=== PATIENT | female | born 1940 | race Caucasian/White ===

== ENCOUNTER 2016-08-23 14:48 | Observation (INO) | payer MEDICARE, BC ==
[~2016-08-23] VITALS: Ht 154.9 cm; Wt 57.2 kg
[~2016-08-23 14:48] MED LIST: ATOR10 PO; ESTR0.5T PO; FEXO180T PO; SANC20TA PO
[2016-08-23] MEDS ORDERED: SODIUM CHLORIDE 0.9% FLUSH 5 ML FLUSH IVF PRN (15:45)
--- NOTE | 2016-08-23 15:46 | PD ---
HPI Chief Complaint: Neuro Symptoms/ Deficits Time Seen by Provider: 15:12 Travel History International Travel<30 days: No Contact w/Intl Traveler<30days: No Traveled to known affect area: No History of Present Illness HPI The patient is a 76-year-old female who presents emergency department for diplopia. The patient states she's had several episodes of diplopia over the last 4 days. The patient saw an excellence consultant earlier today who performed an eye exam, stated there is no obvious abnormalities on eye exam, sent the patient to the emergency department for possible TIA. The patient states the diplopia is present out of both eyes, with or without glasses, but is unsure if she has diplopia when just 1 eye is opened. The patient denies any weakness or numbness of the upper or lower extremities and denies any paresthesias, numbness , or tingling of the upper or lower extremities. The patient does have a history of hyperlipidemia, however, is unable to be treated with statin secondary to medication side effects. The patient denies any known history of hypertension, diabetes, tobacco use, CVA, TIA, PVD, or previous CAD. The patient's primary physician is Dr. Joel Pedro. The patient was sent by the ER physician to rule out TIA/CVA. Upon arrival patient is asymptomatic. PFSH Past Medical History Arthritis: Yes Heart Rhythm Problems: No Cardiac Catheterization: No Cardiovascular Problems: No High Cholesterol: Yes Congestive Heart Failure: No Diabetes: No Diminished Hearing: No GERD: Yes Genitourinary: Yes (spastic bladder) Hypertension: No Immunizations Current: Yes Myocardial Infarction: No Tetanus Vaccination: < 5 Years Influenza Vaccination: Yes ?: Not Past Surgical History Coronary Artery Bypass Graft: No Genitourinary Surgery: Yes (bladder suspension) Hysterectomy: Yes Social History Alcohol Use: Yes (OCC, states she hasn't in a while ) Tobacco Use: No Substance Use: No Allergies-Medications (Allergen,Severity, Reaction): Coded Allergies: Penicillin (Verified Allergy, Severe, HIVES, 08/23/16) Shellfish (Verified Allergy, Intermediate, swelling, 08/23/16) Sulfa (Verified Allergy, Intermediate, unknown, 08/23/16) Uncoded Allergies: STATINS (Allergy, Intermediate, BACK PAIN, 03/28/12) Reported Meds & Prescriptions Reported Meds & Active Scripts Active Reported Fish Oil 1000 mg ([place]-3 Fatty Acids) 1 Cap Cap Omeprazole 20 Mg Tab 20 Mg PO DAILY Payton Allergy (Fexofenadine HCl) 180 Mg Tab 180 Mg PO DAILY [Sanctura] 60 Mg PO DAILY Fexofenadine Hcl (Fexofenadine HCl) 180 Mg Tab 180 Mg PO DAILY Lipitor (Atorvastatin Calcium) 10 Mg Tab 10 Mg PO DAILY [id number] Mg 20 Mg Tab 60 Mg PO DAILY Estradiol 0.5 Mg Tab 0.5 Mg PO DAILY Review of Systems Except as stated in HPI: all other systems reviewed are Neg Eyes: Positive: Diploplia, Visual changes, No: Blurred Vision, Photophobia, Foreign Body Sensation, Pain, Blind Spots, Blindness HENT: No: Headaches, Lightheadedness Cardiovascular: No: Chest Pain or Discomfort Respiratory: No: Shortness of Breath Gastrointestinal: No: Nausea, Vomiting, Abdominal Pain Musculoskeletal: No: Weakness Neurologic: No: Dizziness, Focal Abnormalities, Headache, Paresthesia, Sensory Disturbance Physical Exam Narrative GENERAL: Awake, alert, pleasant 76-year-old female who appears her stated age and is in no acute respiratory distress. SKIN: Warm and dry. HEAD: Atraumatic. Normocephalic. EYES: Pupils equal and round. Pupils are 3 mm bilateral and reactive. EOMs are intact. Vision is intact at a distance of 2 feet to fingers. ENT: No nasal bleeding or discharge. Mucous membranes pink and moist. NECK: Trachea midline. No JVD. CARDIOVASCULAR: Regular rate and rhythm. No murmur appreciated. RESPIRATORY: No accessory muscle use. Clear to auscultation. Breath sounds equal bilaterally. GASTROINTESTINAL: Abdomen soft, non-tender, nondistended. MUSCULOSKELETAL: No obvious deformities. No clubbing. No cyanosis. No edema. NEUROLOGICAL: Awake and alert. No obvious cranial nerve deficits. Motor grossly within normal limits. Normal speech. Nonfocal. Oriented 4. Follows commands without difficulty. No drift of the upper or lower extremities. Smile is symmetric. Finger to nose is normal. [id number]-bt-[id number] is normal. PSYCHIATRIC: Appropriate mood and affect; insight and judgment normal. Data Data Last Documented VS Vital Signs Date Time Temp Pulse Resp B/P Pulse Ox O2 Delivery O2 Flow Rate FiO2 08/23/16 17:30 78 18 132/82 98 Room Air Orders Electrocardiogram (08/23/16 15:33) Prothrombin Time / Inr (Pt) (08/23/16 15:33) Act Partial Throm Time (Ptt) (08/23/16 15:33) Complete Blood Count With Diff (08/23/16 15:33) Comprehensive Metabolic Panel (08/23/16 15:33) Creatine Kinase (Cpk) (08/23/16 15:33) Troponin I (08/23/16 15:33) Ct Brain W/O Iv Contrast(Rout) (08/23/16 15:33) Ecg Monitoring (08/23/16 15:33) Iv Access Insert/Monitor (08/23/16 15:33) Oximetry (08/23/16 15:33) Sodium Chloride 0.9% Flush (Ns Flush) (08/23/16 15:45) Place In Observation (08/23/16 ) Vital Signs (Adult) Q4H (08/23/16 17:35) Neuro Checks Q4H (08/23/16 17:35) Activity Oob Ad Stacie (08/23/16 17:35) Diet Heart Healthy (08/23/16 Dinner) Sodium Chloride 0.9% Flush (Ns Flush) (08/23/16 17:45) Sodium Chloride 0.9% Flush (Ns Flush) (08/23/16 21:00) Acetaminophen (Tylenol) (08/23/16 17:45) Ondansetron Inj (Zofran Inj) (08/23/16 17:45) Comprehensive Metabolic Panel (08/24/16 06:00) Complete Blood Count With Diff (08/24/16 06:00) Scd Bilateral/Knee High GARETH.BID (08/23/16 17:35) Naloxone Inj (Narcan Inj) (08/23/16 17:45) Admit Order (Ed Use Only) (08/23/16 17:36) Aspirin (Aspirin) (08/23/16 17:45) Consult Neurology (08/23/16 ) Labs Laboratory Tests Test 08/23/16 15:00 White Blood Count 5.6 TH/MM3 Red Blood Count 4.45 MIL/MM3 Hemoglobin 13.7 GM/DL Hematocrit 40.0 % Mean Corpuscular Volume 89.8 FL Mean Corpuscular Hemoglobin 30.7 PG Mean Corpuscular Hemoglobin 34.2 % Concent Red Cell Distribution Width 12.6 % Platelet Count 188 TH/MM3 Mean Platelet Volume 9.4 FL Neutrophils (%) (Auto) 53.6 % Lymphocytes (%) (Auto) 33.3 % Monocytes (%) (Auto) 9.5 % Eosinophils (%) (Auto) 1.5 % Basophils (%) (Auto) 2.1 % Neutrophils # (Auto) 3.0 TH/MM3 Lymphocytes # (Auto) 1.9 TH/MM3 Monocytes # (Auto) 0.5 TH/MM3 Eosinophils # (Auto) 0.1 TH/MM3 Basophils # (Auto) 0.1 TH/MM3 CBC Comment DIFF FINAL Differential Comment Prothrombin Time 10.1 SEC Prothromb Time International 0.9 RATIO Ratio Activated Partial 23.2 SEC Thromboplast Time Sodium Level 140 MEQ/L Potassium Level 3.7 MEQ/L Chloride Level 105 MEQ/L Carbon Dioxide Level 26.5 MEQ/L Anion Gap 9 MEQ/L Blood Urea Nitrogen 23 MG/DL Creatinine 0.79 MG/DL Estimat Glomerular Filtration 71 ML/MIN Rate Random Glucose 100 MG/DL Calcium Level 8.6 MG/DL Total Bilirubin 0.3 MG/DL Aspartate Amino Transf 20 U/L (AST/SGOT) Alanine Aminotransferase 20 U/L (ALT/SGPT) Alkaline Phosphatase 82 U/L Total Creatine Kinase 78 U/L Troponin I LESS THAN 0.02 NG/ML Total Protein 7.0 GM/DL Albumin 3.3 GM/DL [facility] Medical Decision Making Medical Screen Exam Complete: Yes Emergency Medical Condition: Yes Medical Record Reviewed: Yes Interpretation(s) EKG reveals normal sinus rhythm with a rate of 78. No ischemic changes or ectopy noted. Differential Diagnosis Differential diagnosis includes TIA, CVA, diplopia, visual acuity changes, embolic phenomenon, cerebellar infarct, pituitary adenoma. Narrative Course IV was established, labs were drawn and sent, and the patient was placed on cardiac telemetry monitoring and continuous pulse oximetry monitoring. EKG was ordered and interpreted. CT of the brain was ordered. CT the brain was negative. The patient was administered aspirin orally. Laboratory evaluation is unremarkable. The patient has a component of binocular and monocular diplopia, was sent to the emergency department to rule out TIA/CVA by excellence consultant. Therefore, patient will be admitted for 23 hour observation for further evaluation including MRI, ultrasound of carotids, and echocardiogram. I discussed the patient with the on-call physician for Dr. Joel Pedro, Dr. Billy, who agrees with 23 hour observation. Physician Communication Physician Communication I discussed the patient Dr. Billy who agrees with 23 hour observation. Diagnosis Primary Impression: Diplopia Admitting Information Admitting Physician Requests: Observation Condition: Stable Anand Christian MD Aug 23, 2016 15:46
[2016-08-23 16:00] VITALS: O2SAT 98
[2016-08-23 16:22] LABS: BASOPHIL # 0.1 TH/MM3 (0-0.2); BASOPHIL % 2.1 % (0.0-2.0); EOSINOPHIL # 0.1 TH/MM3 (0-0.4); EOSINOPHIL % 1.5 % (0.0-4.0); HEMO FLAGS DIFF FINAL; LYMPH % 33.3 % (9.0-44.0); LYMPHOCYTE # 1.9 TH/MM3 (1.0-4.8); MEAN CELL VOLUME 89.8 FL (80.0-100.0); MEAN CORPUSCULAR HEMOGLOBIN 30.7 PG (27.0-34.0); MEAN CORPUSCULAR HGB CONC 34.2 % (32.0-36.0); MONO % 9.5 % (0.0-8.0); NEUT % 53.6 % (16.0-70.0); PLATELET COUNT 188 TH/MM3 (150-450); RED BLOOD COUNT 4.45 MIL/MM3 (4.00-5.30); RED CELL DISTRIBUTION WIDTH 12.6 % (11.6-17.2); WHITE BLOOD COUNT 5.6 TH/MM3 (4.0-11.0)
[2016-08-23 16:41] LABS: CHLORIDE 105 MEQ/L (98-107); POTASSIUM 3.7 MEQ/L (3.5-5.1); SODIUM (NA) 140 MEQ/L (136-145)
[2016-08-23 16:48] LABS: ANION GAP 9 MEQ/L (5-15); BICARBONATE 26.5 MEQ/L (21.0-32.0); BLOOD UREA NITROGEN 23 MG/DL (7-18)
[2016-08-23 16:51] LABS: ALT (GPT) 20 U/L (10-53); AST (GOT) 20 U/L (15-37); GLOMERULAR FILTRATION RATE 71 ML/MIN (>89)
--- NOTE | 2016-08-23 16:51 | RADHPO ---
EXAM DATE/TIME: 08/23/2016 16:09 [facility] COMPARISON: No previous studies available for comparison. INDICATIONS : Double vision with headache for four days. RADIATION DOSE: 61.28 CTDIvol (mGy) MEDICAL HISTORY : None SURGICAL HISTORY : None. ENCOUNTER: Initial ACUITY: 4 - 6 days PAIN SCALE: 4/10 LOCATION: cranial TECHNIQUE: Multiple contiguous axial images were obtained of the head. Using automated exposure control and adj ustment of the mA and/or kV according to patient size, radiation dose was kept as low as reasonably a chievable to obtain optimal diagnostic quality images. FINDINGS: CEREBRUM: The ventricles are normal for age. No evidence of midline shift, mass lesion, hemorrhage or acute in farction. No extra-axial fluid collections are seen. POSTERIOR FOSSA: The cerebellum and brainstem are intact. The 4th ventricle is midline. The cerebellopontine angle i s unremarkable. EXTRACRANIAL: The visualized portion of the orbits is intact. SKULL: The calvaria is intact. No evidence of skull fracture. CONCLUSION: Normal examination. Grabiel Johnson MD on August 23, 2016 at 16:48 Board Certified Radiologist. This report was verified electronically.
[2016-08-23 16:53] LABS: TOTAL BILIRUBIN ADULT 0.3 MG/DL (0.2-1.0)
[2016-08-23 16:54] LABS: ALKALINE PHOSPHATASE 82 U/L (45-117)
[2016-08-23 16:58] LABS: CREATINE KINASE 78 U/L (26-192)
[2016-08-23 17:22] LABS: APTT (PATIENT) 23.2 SEC (24.3-30.1); INTERNATIONAL NORMALIZED RATIO 0.9 RATIO; PROTHROMBIN TIME - PATIENT 10.1 SEC (9.8-11.6)
[2016-08-23 17:30] VITALS: BP 132/82; PULSE 78; RESP 18; O2SAT 98
[2016-08-23] MEDS ORDERED: NALOXONE HCL 0.4 MG/ML AMP IV PRN (17:45)
[2016-08-23] MEDS ORDERED: SODIUM CHLORIDE 0.9% FLUSH 5 ML FLUSH FLUSH PRN (17:45)
[2016-08-23] MEDS ORDERED: ACETAMINOPHEN 325 MG TAB PO PRN (17:45)
[2016-08-23] MEDS ORDERED: ONDANSETRON HCL 4 MG/2 ML VIAL IVP PRN (17:45)
[2016-08-23] MEDS ORDERED: ASPIRIN 325 MG TAB PO ONE (17:45)
[2016-08-23] MEDS: ATORVASTATIN 10 MG TAB PO SCH (18:00)
[2016-08-23] MEDS: LORATADINE 10 MG TAB PO SCH (18:31)
[2016-08-23] MEDS: TOLTERODINE TARTRATE 4 MG CAP LA PO SCH (18:31)
[2016-08-23] MEDS ORDERED: OMEP20TA PO (18:38)
[2016-08-23] MEDS ORDERED: SANCTURA PO (18:38)
[2016-08-23] MEDS ORDERED: FEXO15TA PO (18:38)
[2016-08-23] MEDS ORDERED: OMEG100037 (18:38)
[2016-08-23 19:00] VITALS: BP 160/75; PULSE 82; RESP 16; TEMP 97.2; O2SAT 97
--- NOTE | 2016-08-23 19:51 | RADHPO ---
EXAM DATE/TIME: 08/23/2016 19:29 [facility] COMPARISON: CT BRAIN W/O CONTRAST, August 23, 2016, 16:09. INDICATIONS : CVA. Intermittent diplopia. MEDICAL HISTORY : Hypercholesterolemia. SURGICAL HISTORY : Cholecystectomy. Hysterectomy. ENCOUNTER: Initial ACUITY: 2 day PAIN SCORE: 2/10 LOCATION: head TECHNIQUE: Multiplanar, multisequence MRI of the brain was performed without contrast. FINDINGS: There is no evidence for intracranial hemorrhage, mass effect, mass lesions, edema, or extra-axial fl uid collections. There are no signs of acute infarction for technique. The diffusion portion is unre markable. Slight degree of brain atrophy is seen. Slight periventricular white matter changes are see n nonspecific mostly consistent with chronic small vessel ischemic changes. CONCLUSION: Chronic atrophic and small vessel ischemic changes without any evidence for acute hem orrhage or mass effect. David Reyes MD on August 23, 2016 at 19:48 Board Certified Radiologist. This report was verified electronically.
[2016-08-23 20:24] VITALS: BP 141/70; PULSE 86; RESP 14; TEMP 96.4; O2SAT 95
[2016-08-23] MEDS: SODIUM CHLORIDE 0.9% FLUSH 5 ML FLUSH FLUSH SCH (20:52)
[2016-08-24 01:42] VITALS: BP 105/56; PULSE 85; RESP 12; TEMP 98.1; O2SAT 95
[2016-08-24 04:00] VITALS: BP 120/72; PULSE 84; RESP 14; TEMP 98.6; O2SAT 96
[2016-08-24 08:00] VITALS: BP 102/70; PULSE 92; RESP 20; TEMP 96.5; O2SAT 95
[2016-08-24 08:05] VITALS: PULSE 116
[2016-08-24 08:32] LABS: AUTOMATED NEUTROPHIL # 2.8 TH/MM3 (1.8-7.7); BASOPHIL # 0.1 TH/MM3 (0-0.2); BASOPHIL % 1.3 % (0.0-2.0); EOSINOPHIL # 0.1 TH/MM3 (0-0.4); EOSINOPHIL % 2.7 % (0.0-4.0); HEMATOCRIT 40.1 % (35.0-46.0); HEMO FLAGS DIFF FINAL; LYMPH % 33.5 % (9.0-44.0); LYMPHOCYTE # 1.8 TH/MM3 (1.0-4.8); MEAN CELL VOLUME 90.1 FL (80.0-100.0); MEAN CORPUSCULAR HEMOGLOBIN 30.9 PG (27.0-34.0); MEAN CORPUSCULAR HGB CONC 34.3 % (32.0-36.0); MONO % 10.1 % (0.0-8.0); NEUT % 52.4 % (16.0-70.0); PLATELET COUNT 199 TH/MM3 (150-450); RED BLOOD COUNT 4.45 MIL/MM3 (4.00-5.30); RED CELL DISTRIBUTION WIDTH 13.2 % (11.6-17.2); WHITE BLOOD COUNT 5.3 TH/MM3 (4.0-11.0)
[2016-08-24 08:36] LABS: CHLORIDE 106 MEQ/L (98-107); POTASSIUM 4.3 MEQ/L (3.5-5.1); SODIUM (NA) 141 MEQ/L (136-145)
[2016-08-24 08:40] LABS: ANION GAP 5 MEQ/L (5-15); BLOOD UREA NITROGEN 21 MG/DL (7-18)
[2016-08-24] MEDS: TOLTERODINE TARTRATE 4 MG CAP LA PO SCH (08:42)
[2016-08-24 08:43] LABS: ALT (GPT) 17 U/L (10-53); AST (GOT) 15 U/L (15-37); GLOMERULAR FILTRATION RATE 74 ML/MIN (>89)
[2016-08-24] MEDS: LORATADINE 10 MG TAB PO SCH (08:43)
[2016-08-24] MEDS: SODIUM CHLORIDE 0.9% FLUSH 5 ML FLUSH FLUSH SCH (08:43)
[2016-08-24] MEDS: ATORVASTATIN 10 MG TAB PO SCH ×2 (08:43→08:49)
[2016-08-24 08:44] LABS: TOTAL BILIRUBIN ADULT 0.4 MG/DL (0.2-1.0)
[2016-08-24 08:46] LABS: ALKALINE PHOSPHATASE 81 U/L (45-117)
[2016-08-24] MEDS ORDERED: ASPI325T PO (10:26)
[2016-08-24] MEDS ORDERED: PANTOPRAZOLE SOD 40 MG DELAYED RELEASE TAB PO SCH (10:30)
[2016-08-24] MEDS ORDERED: ASPIRIN 325 MG TAB PO SCH (10:30)
[2016-08-24 12:00] VITALS: BP 125/71; PULSE 83; RESP 16; TEMP 96.7; O2SAT 97
--- NOTE | 2016-08-24 12:16 | EKG ---
Date Performed: 08/23/2016 Time Performed: 15:50:12 PTAGE: 76 years EKG: Sinus rhythm Normal ECG PREVIOUS TRACING : 04/07/2009 11.51 Compared to prior tracing no significant change DOCTOR: Bertin Carver Interpretating Date/Time 08/24/2016 12:14:41
--- NOTE | 2016-08-24 12:29 | MH ---
cc: DARNELL FLOR MD DATE OF ADMISSION 08/23/2016 CHIEF COMPLAINT Double vision. HISTORY OF PRESENT ILLNESS This is 76-year-old female with past medical-surgical history significant for arthritis, hyperlipidemia, spastic urinary bladder, history of bladder suspension surgery, hysterectomy who came to the ER at [facility] complaining of diplopia. The patient stated that she had several episodes of diplopia over the last 4 days and she saw an ruling technician earlier yesterday and was performed an eye examination, stated there is no obvious abnormality on the eye examination, sent the patient to the emergency room at [facility] for TIA. The patient states that the diplopia is present out of both eyes with or without glasses but is unsure if she has diplopia when just one eye is open. The patient denies any weakness or numbness, any speech problems, any hearing problem, any swallowing problems, any ___, numbness, tingling, any weakness in the upper or lower extremity or any confusion. He has hyperlipidemia but unable to treat it because of medication side effects. The patient denies any history of hypertension, diabetes, stroke in the past ____, history of peripheral vascular disease, coronary artery disease, has CVA in the past. When I examined the patient the patient is completely asymptomatic, has no diplopia, has totally resolved, other than that nothing significant. Past medical-surgical history as dictated above. SOCIAL HISTORY She denies smoking. She drinks occasionally. Denies any drug abuse. Lives at home. She is a retired sales process manager. ALLERGIES ALLERGY TO PENICILLIN, SHELLFISH, SULFA AND STATIN. MEDICATIONS 1. Fish oil. 2. Omeprazole 20 milligrams p.o. daily. 3. Payton 180 milligrams p.o. daily. 4. Fexofenadine 180 milligrams p.o. daily. 5. ___ 60 milligrams p.o. daily. 6. Estradiol 0.5 milligrams p.o. daily. The patient advised to stop Estradiol. REVIEW OF SYSTEMS All the review of systems are negative. PHYSICAL EXAMINATION GENERAL: This is a 76-year-old female sitting on the bed, not in any acute distress. VITAL SIGNS: Temperature 98.6, heart rate 84, respirations 14, blood pressure 120/72, O2 saturation 96% on room air. HEENT: Normocephalic, atraumatic. EOMI, PERRL, oral mucosa moist. NECK: Supple. No visible thyromegaly or neck mass. Trachea central. CVS: Regular rate and rhythm. LUNGS: Respiration is clear to auscultation bilaterally. ABDOMEN: Soft, nontender. Bowel sounds audible. EXTREMITIES: No cyanosis or clubbing. Full range of motion of all extremities. NEURO: Awake, alert, oriented x4. No focal deficits. SKIN: Warm and dry. PSYCH: The patient is cooperative. Mood and affect are normal. LABORATORY DATA Include CBC is totally unremarkable except for mono 10.1 high. BUN 21 high, GFR 74. LFTs are normal. Troponin I less than 0.02, albumin 3.2 low, total protein normal. PT 10.1, INR 0.9, APTT 23.2. IMAGING STUDIES CT brain done shows nothing acute. MRI of the brain done shows chronic atrophic and small-vessel ischemic changes without any evidence for acute hemorrhage or mass effect. ASSESSMENT/PLAN 1. This is a 76-year-old female who came to the ER diagnosed with diplopia off and on which is totally resolved, most likely TIA. The patient is on aspirin 325 milligrams p.o. daily. The patient had a statin taken in the past but has adverse reactions so unable to tolerate atorvastatin and unable to tolerate Crestor. Neurology consulted. CT brain does not show anything acute. MRI brain does not show anything acute. Further recommendation per neurology. Okay to discharge if okay with neurology. 2. History of hyperlipidemia. 3. History of arthritis. 4. History of spastic bladder. 5. History of gastroesophageal reflux disease. Protonix 40 milligrams p.o. daily. 6. DVT prophylaxis, SCD. 7. GI prophylaxis, Protonix 40 milligrams p.o. daily. We are going to manage the patient on a daily basis and make recommendations on a daily basis. Darnell Flor MD EA/BRIAN /10:22 AM /11:52 AM
--- NOTE | 2016-08-24 13:08 | MB ---
cc: THU HASSAN M.D. DATE OF CONSULTATION: 08/24/2016 HISTORY OF PRESENT ILLNESS She is a 76-year-old woman seen in consultation because of double vision. In the past few days she has had some very brief episodic double vision. She is unsure but it seems to be worse perhaps when she looks to the right and down. There are images perhaps [id number] with one imaging fading. No symptoms of paresthesias, no difficulty with speech, no problems with gait or balance. She has no history of stroke, seizures or TIAs. MEDICATIONS She does not take aspirin. She takes Tylenol p.r.n. She takes supplements, Lipitor, Estradiol, Sanctura. NEUROLOGIC EXAMINATION The patient is alert, very pleasant, oriented. Normal mentation. The ocular movements and visual [place] full. Pupils equal, reactive. There is a slight flattening on the right nasolabial fold, equivocal significance. There is no arm drift. Xdiatn-qj-jpot testing is normal. Reflexes were 1+, plantar responses flexor. ANCILLARY DATA MRI brain is showing some small vessel microvascular disease. CT brain normal. Chemistries essentially normal. ASSESSMENT Episodic, brief double vision. The cause is uncertain. I discussed with the patient that I would like her to start a baby aspirin daily. She can be discharged to be followed as outpatient. I will request thyroid enzymes, myasthenia antibodies, sed rate. She is instructed to see him in a couple of weeks. We will consider MRA studies as well. Thank you for asking us to assist in her care. MD DENNISE Prado/LATESHA /10:39 AM /12:55 PM
--- NOTE | 2016-08-24 13:43 | RADHPO ---
EXAM DATE/TIME: 08/24/2016 13:00 [facility] COMPARISON: No previous studies available for comparison. INDICATIONS : Cerebrovascular accident. MEDICAL HISTORY : Diplopia. GERD. Hyperlipidemia. SURGICAL HISTORY : Hysterectomy. Bladder suspension. ENCOUNTER: Initial ACUITY: 4-6 days PAIN SCORE: 2/10 LOCATION: Bilateral neck PEAK SYSTOLIC VELOCITIES (cm/sec): ICA/CCA RATIO: Right: 0.9 Left: 1.1 ICA: Right: 110 Left: 134 CCA: Right: 119 Left: 124 ECA: Right: 116 Left: 101 VERTEBRAL: Right: 79 antegrade Left: 67 antegrade Elevated flow velocities and ICA/CCA ratios have been found to correlate with increased degrees of vessel stenosis, calculated as percentage of diameter relative to a normal segment of distal ICA/CCA FINDINGS: RIGHT CAROTID: Mild noncalcified plaquing at the bifurcation. No significant stenosis is visualized. The waveforms are within normal limits. LEFT CAROTID: Mild noncalcified plaquing at the bifurcation. No significant stenosis is visualized. The waveforms are within normal limits. VERTEBRAL ARTERIES: Antegrade flow is seen in both vertebral arteries. MISCELLANEOUS: None. CONCLUSION: Mild atherosclerotic plaquing is noted at both carotid bifurcations. No focal high grade or hemodynam ically significant stenosis is demonstrated. Boy Hauser MD on August 24, 2016 at 13:40 Board Certified Radiologist. This report was verified electronically.
[2016-08-24 14:56] LABS: FREE T4 0.97 NG/DL (0.76-1.46)
[2016-08-28 13:56] LABS: STRIATED MUCLE AB TITER ND (<1:40)
[2016-08-30 19:54] LABS: ACETYLCHOLINE REC BINDING LESS THAN 0.30 nmol/L (())
== END 2016-08-24 14:33 | disposition home or self-care (01) ==
LOC: PHED 14:48 → PHEDA 17:37 → PH3A 18:43
PROVIDERS: ADMIT Family Medicine; ATTEND Family Medicine
DX: H53.2 Diplopia (principal); E78.5 Hyperlipidemia, unspecified; K21.9 Gastro-esophageal reflux disease without esophagitis; E78.00 Pure hypercholesterolemia, unspecified; M19.90 Unspecified osteoarthritis, unspecified site; Z79.82 Long term (current) use of aspirin; Z79.899 Other long term (current) drug therapy
CPT/HCPCS: 70450; 70551; 80053; 82550; 82607; 83519; 84439; 84443; 84484; 85025; 85610; 85652; 85730; 86255; 93005; 93880; 99285; G0378

== ENCOUNTER 2017-03-22 14:23 | Emergency (ER) | payer MEDICARE, BC ==
[~2017-03-22] VITALS: Ht 154.9 cm; Wt 56.0 kg
[~2017-03-22 14:23] MED LIST changes: +ASPI325T PO; -ATOR10 PO; -ESTR0.5T PO; +FEXO15TA PO; +OMEG100037; +OMEP20TA PO
[2017-03-22 14:25] VITALS: BP 198/85; PULSE 88; RESP 16; TEMP 97.7; O2SAT 96
[2017-03-22] MEDS ORDERED: ESTR1TAB PO (14:42)
[2017-03-22] MEDS ORDERED: ROSU20 PO (14:42)
[2017-03-22] MEDS ORDERED: ASPI81CH7 CHEW (14:42)
--- NOTE | 2017-03-22 15:12 | PD ---
HPI Chief Complaint: Musculoskeletal Complaint Time Seen by Provider: 14:49 Travel History International Travel<30 days: No Contact w/Intl Traveler<30days: No Traveled to known affect area: No History of Present Illness HPI 76-year-old female presents to the emergency room for evaluation of right thigh pain after a fall earlier today. Patient slipped on bug spray on her garage floor in her right leg without murmur. She had immediate sharp, severe pain in her right posterior thigh. At rest, there is no significant pain. States she has not been able to walk on it since then because of pain. Patient has not taken anything. Denies paresthesias. Denies hitting her head or any other injuries. PFSH Past Medical History Arthritis: Yes Blood Disorders: No Heart Rhythm Problems: No Cancer: No Cardiac Catheterization: No Cardiovascular Problems: No High Cholesterol: Yes Congestive Heart Failure: No Diabetes: No Diminished Hearing: No Endocrine: No GERD: Yes Genitourinary: Yes (spastic bladder) Hypertension: No Immune Disorder: No Musculoskeletal: No Neurologic: No Psychiatric: No Reproductive: No Respiratory: No Immunizations Current: Yes Myocardial Infarction: No Thyroid Disease: No ?: Not Past Surgical History Body Medical Devices: bilat cataracts Cholecystectomy: Yes Coronary Artery Bypass Graft: No Eye Surgery: Yes (CATARACTS) Genitourinary Surgery: Yes (bladder suspension) Hysterectomy: Yes Social History Alcohol Use: Yes (RARE) Tobacco Use: No Substance Use: No Allergies-Medications (Allergen,Severity, Reaction): Coded Allergies: penicillin G (Unverified Allergy, Severe, HIVES, 03/22/17) Sulfa (Sulfonamide Antibiotics) (Unverified Allergy, Intermediate, unknown , 03/22/17) shellfish derived (Unverified Allergy, Intermediate, swelling, 03/22/17) Uncoded Allergies: STATINS (Allergy, Intermediate, BACK PAIN, 03/28/12) Reported Meds & Prescriptions Reported Meds & Active Scripts Active Reported Crestor (Rosuvastatin Calcium) 20 Mg Tab 20 Mg PO WEEKLY Estradiol 1 Mg Tab 1 Mg PO DAILY Aspirin Children's (Aspirin) 81 Mg Chew 81 Mg CHEW DAILY Omeprazole 20 Mg Tab 20 Mg PO DAILY Review of Systems Except as stated in HPI: all other systems reviewed are Neg Physical Exam Narrative GENERAL: Well-nourished, well-developed female in no acute distress. Afebrile. SKIN: Focused skin assessment warm/dry. No erythema or ecchymosis. HEAD: Normocephalic. EYES: No scleral icterus. No injection or drainage. NECK: Supple, trachea midline. No JVD or lymphadenopathy. CARDIOVASCULAR: Regular rate and rhythm without murmurs, gallops, or rubs. RESPIRATORY: Breath sounds equal bilaterally. No accessory muscle use. MUSCULOSKELETAL: No cyanosis. No obvious edema. Compartments soft. Full range motion of the right lower extremity including hip, knee, ankle, and foot. Right hip is neither rotated nor shortened. No bony tenderness to palpation. 2+ dorsalis pedis pulse. There is mild tenderness to palpation of the hamstring muscles. Pain is exacerbated with any range of motion of the right leg. No pain at rest. Data Data Last Documented VS Vital Signs Date Time Temp Pulse Resp B/P (MAP) Pulse Ox O2 Delivery O2 Flow Rate FiO2 03/22/17 14:25 97.7 88 16 198/85 (122) 96 Orders Orders Bairon Bandage (03/22/17 15:02) Ketorolac Inj (Toradol Inj) (03/22/17 15:15) Orphenadrine Inj (Norflex Inj) (03/22/17 15:15) MDM Medical Decision Making Medical Screen Exam Complete: Yes Emergency Medical Condition: Yes Medical Record Reviewed: Yes Differential Diagnosis Sprain, strain, fracture, dislocation Narrative Course 76-year-old female presents to the emergency room for evaluation of right posterior thigh pain after slipping just prior to arrival. Patient states her leg slipped out from under her and she did the splitz. No other injuries. She had immediate pain and has not been able to bear weight because of pain. Pain is localized to the mid hamstring muscles. No joint or bone pain. Denies paresthesias. Physical exam is reassuring. There is no obvious tendon rupture. No erythema, ecchymosis, or edema. The muscle is mildly tender to palpation. No bony tenderness to palpation of the femur. Right lower extremity is neurovascularly intact with 2+ dorsalis pedis pulse. She has full range of motion. Patient has pain with range of motion of the leg. No pain at rest. Patient was informed that x-rays will not show muscle, ligament, or tendon injuries. She was given the expected course of the muscle strain/tear. She will be given Toradol and Norflex in the emergency room and discharged with prescriptions for tramadol and baclofen. She has a walker at home that she will use. She was given signs and symptoms of compartment syndrome and told to return should they arise. Patient will follow-up with her primary care physician or return for worsening symptoms. She understands and agrees to plan. Diagnosis Primary Impression: Hamstring muscle strain Qualified Codes: S76.311A - Strain of muscle, fascia and tendon of the posterior muscle group at thigh level, right thigh, initial encounter Referrals: Primary Care Physician Additional Instructions: Rest and drink plenty of fluids. Take baclofen as directed, as needed for pain. Take tramadol with food as directed, as needed for pain. Apply ice to the affected area for 20 minutes at a time, as needed for pain and swelling. Follow-up with a primary care physician. Return to the emergency room for worsening symptoms. Med/Other Pt SpecificInfo: Prescription(s) given Disposition: 01 DISCHARGE HOME Condition: Stable Sanjana Lowery Mar 22, 2017 15:12
[2017-03-22] MEDS ORDERED: BACL10TA PO (15:14)
[2017-03-22] MEDS ORDERED: TRAM50TA PO (15:14)
[2017-03-22] MEDS ORDERED: ORPHENADRINE INJ 60 MG/2 ML AMP IM ONE (15:15)
[2017-03-22] MEDS ORDERED: KETOROLAC TROMETHAMINE 60 MG/2 ML (IM) VIAL IM ONE (15:15)
[2017-03-22 15:52] VITALS: BP 168/82
== END 2017-03-22 15:53 | disposition home or self-care (01) ==
LOC: PHEFT 14:23
DX: S76.311A Strain of muscle, fascia and tendon of the posterior muscle group at thigh level, right thigh, initial encounter (principal); W01.0XXA Fall on same level from slipping, tripping and stumbling without subsequent striking against object, initial encounter; Y92.008 Other place in unspecified non-institutional (private) residence as the place of occurrence of the external cause
CPT/HCPCS: 96372; 99284; J1885; J2360